=== PATIENT | female | born 1930 | race Caucasian/White ===

== ENCOUNTER 2019-02-05 01:05 | Emergency (ER) | payer MEDICARE, MEDICAID ==
--- NOTE | 2019-02-05 01:31 | ED ---
GI/ HPI - HPI Summary HPI Summary: This patient is an 88 year old female brought in by EMS presenting to [facility] with a chief complaint of possible GI bleed since 11 hours ago. At this time she was vomiting coffee ground vomitus. She reports nausea and 7/10 abdominal pain. She has a hx. of GERD, HTN. She was given 8mg IV zofran by EMS enroute. She takes Aleve daily. - History of Current Complaint Chief Complaint: EDGIBleed Time Seen by Provider: 02/05/19 01:24 Stated Complaint: ABD PAIN PER EMS Hx Obtained From: Patient Onset/Duration: Started Hours Ago Timing: Constant Pain Intensity: 7 - Allergy/Home Medications Allergies/Adverse Reactions: Allergies Allergy/AdvReac Type Severity Reaction Status Date / Time No Known Allergies Allergy Verified 02/05/19 03:27 Home Medications: Home Medications Naproxen Sodium [Aleve] 220 mg PO BEDTIME 02/05/19 [History Confirmed 02/05/19] PMH/Surg Hx/FS Hx/Imm Hx Cardiovascular History: Reports: Hx Hypertension Musculoskeletal History: Denies: Hx Rheumatoid Arthritis - Surgical History Surgery Procedure, Year, and Place: Appendectomy. Back Surgery Infectious Disease History: No Infectious Disease History: Denies: Traveled Outside the [place] in Last 30 Days - Family History Known Family History: Negative: Cardiac Disease - Social History Alcohol Use: None Substance Use Type: Reports: None Smoking Status (MU): Never Smoked Tobacco Review of Systems Negative: Fever Positive: Abdominal Pain, Vomiting, Nausea All Other Systems Reviewed And Are Negative: Yes Physical Exam - Summary Physical Exam Summary: VITAL SIGNS: Reviewed. GENERAL: Patient is a well-developed and nourished FEMALE who is lying comfortable in the stretcher. Patient is not in any acute respiratory distress. HEAD AND FACE: No signs of trauma. No ecchymosis, hematomas or skull depressions. No sinus tenderness. EYES: PERRLA, EOMI x 2, No injected conjunctiva, no nystagmus. EARS: Hearing grossly intact. Ear canals and tympanic membranes are within normal limits. MOUTH: Oropharynx within normal limits. NECK: Supple, trachea is midline, no adenopathy, no JVD, no carotid bruit, no c- spine tenderness, neck with full ROM. CHEST: Symmetric, no tenderness at palpation LUNGS: Clear to auscultation bilaterally. No wheezing or crackles. CVS: Regular rate and rhythm, S1 and S2 present, no murmurs or gallops appreciated. ABDOMEN: Soft, non-tender. No signs of distention. No rebound no guarding, and no masses palpated. Bowel sounds are normal. EXTREMITIES: FROM in all major joints, no edema, no cyanosis or clubbing. NEURO: Alert and oriented x 3. No acute neurological deficits. Speech is normal and follows commands. SKIN: Dry and warm Rectal: No hemorrhoids, brown stool. Will send for occult screen. Triage Information Reviewed: Yes Vital Signs On Initial Exam: Initial Vitals Temp Pulse Resp BP Pulse Ox 99.2 F 86 18 154/86 96 02/05/19 01:15 02/05/19 01:15 02/05/19 01:15 02/05/19 01:15 02/05/19 01:15 Vital Signs Reviewed: Yes Diagnostics - Vital Signs Vital Signs Temp Pulse Resp BP Pulse Ox 02/05/19 01:15 99.2 F 86 18 154/86 96 - Laboratory Result Diagrams: 02/05/19 01:59 02/05/19 01:59 Lab Statement: Any lab studies that have been ordered have been reviewed, and results considered in the medical decision making process. - CT Abd/Pel CT Interpretation Completed By: Radiologist Summary of CT Findings: Large hiatal hernia. In addition, intrathoracic location of a portion of the distal body of the stomach. ED Provider has reviewed this report. GIGU Course/Dx - Course Course Of Treatment: This patient is an 88 year old female brought in by EMS presenting to [facility] with a chief complaint of possible GI bleed since [address] Abd/Pel was remarkable for hiatial hernia and gastritis. The patient tolerated PO well. A plan for discharge was discussed with the patient and she was agreeable with this plan. - Diagnoses Provider Diagnoses: Hiatal hernia, Gastritis Discharge - Sign-Out/Discharge Documenting (check all that apply): Patient Departure - Discharge Patient Received Moderate/Deep Sedation with Procedure: No - Discharge Plan Condition: Stable Disposition: HOME Prescriptions: Ondansetron HCl [Zofran] 8 mg PO Q6H PRN #20 tablet PRN Reason: Nausea/Vomiting Pantoprazole TAB * [Protonix TAB*] 40 mg PO DAILY #30 tab Patient Education Materials: Hiatal Hernia (ED), Gastritis (ED) Referrals: Savita Patel, [facility] [Primary Care Provider] - Additional Instructions: Return to ED with any new or worsening symptoms. - Attestation Statements Document Initiated by Scribe: Yes Documenting Scribe: Juan Yo Provider For Whom Scribe is Documenting (Include Credential): Anuel Martinez MD Scribe Attestation: IJuan, scribed for Anuel Martinez MD on 02/05/19 at 0521. Status of Scribe Document: Ready
[2019-02-05] MEDS ORDERED: Metoclopramide IV* 5 MG/ML 2 ML VIAL IV SLOW PU ONE (01:34)
[2019-02-05] MEDS ORDERED: Morphine 4 MG/ML VIAL (1 ml) 4 MG/ML VIAL IV ONE (01:34)
[2019-02-05] MEDS ORDERED: Pantoprazole IV* 40 MG IV ONE (01:34)
[2019-02-05 02:08] LABS: ABS Basophils 0.1 10^3/ul (0-0.2); ABS Lymphocytes 1.3 10^3/ul (1.0-4.8); ABS Monocytes 0.6 10^3/ul (0-0.8); ABS Neutrophils 9.6 10^3/ul (1.5-7.7); Eosinophil % 0.2 %; Hematocrit 41 % (35-47); Hemoglobin 13.4 g/dL (12.0-16.0); Lymphocyte % 11.3 %; Mean Corpuscular HGB Conc 33 g/dL (31-36); Mean Corpuscular Hemoglobin 28 pg (27-31); Mean Corpuscular Volume 84 fL (80-97); Mean Platelet Volume 7.7 fL (7.4-10.4); Platelet Count 200 10^3/uL (150-450); Red Blood Count 4.86 10^6 /uL (3.70-4.87); Red Cell Distribution Width 15 % (10-15); White Blood Count 11.5 10^3/uL (3.5-10.8)
[2019-02-05 02:27] LABS: Albumin 4.3 g/dL (3.2-5.2); Albumin/Globulin Ratio 1.3 (1-3); C Reactive Protein 3.19 mg/L (<8.01); Calcium 10.8 mg/dL (8.6-10.3); EGFR African American 58.6 (>60); EGFR Non-African American 48.4 (>60); Globulin 3.2 g/dL (2-4); Potassium 3.6 mmol/L (3.5-5.0); Total Bilirubin 0.6 mg/dL (0.2-1.0); Total Protein 7.5 g/dL (6.4-8.9)
[2019-02-05 02:30] LABS: Activated Partial Thrombo Time 31.5 seconds (26.0-38.0); INR 0.98 (0.82-1.09)
[2019-02-05] MEDS ORDERED: Iodixanol* (CONTRAST) 320 MG/ML 100 ML SDV IV ONE (02:36)
[2019-02-05 05:23] VITALS: BP 146/75
[2019-02-05 06:29] LABS: Urine Appearance Turbid; Urine Bacteria Absent (Absent); Urine Bilirubin Negative (Negative); Urine Blood 1+ (Negative); Urine Color Yellow; Urine Glucose Negative (Negative); Urine Ketones Trace (Negative); Urine Nitrite Negative (Negative); Urine Protein Negative (Negative); Urine Red Blood Cell 1+(3-5/hpf) (Absent); Urine Specific Gravity 1.035 (1.010-1.030); Urine Squamous Epithelial Cell Present (Absent); Urine Urobilinogen Negative (Negative); Urine White Blood Cell Absent (Absent)
== END 2019-02-05 05:33 | disposition home or self-care (01) ==
LOC: ED 01:05
DX: K44.9 Diaphragmatic hernia without obstruction or gangrene (principal); K29.70 Gastritis, unspecified, without bleeding; K21.9 Gastro-esophageal reflux disease without esophagitis; I10 Essential (primary) hypertension; Z79.899 Other long term (current) drug therapy
CPT/HCPCS: 36415; 74177; 80053; 81003; 81015; 82150; 82272; 83690; 85025; 85610; 85730; 86140; 86850; 86900; 86901; 96374; 96375; 99284; J2270; J2765; Q9967

== ENCOUNTER 2019-07-29 21:47 | Inpatient (IN) | payer MEDICARE, MEDICAID ==
--- NOTE | 2019-07-29 23:12 | ED ---
Abdominal Pain/Female - HPI Summary HPI Summary: 88-year-old female with a significant past medical history of a hiatal hernia, hypertension presents to emergency department today complaining of 8 out of 10 diffuse lower abdominal pain which describes as achy. Patient states she had an episode lasting approximately 4 hours yesterday evening that she felt better when she woke up this date. She states that approximately 1700 this date her symptoms returned and were worse. Patient is currently denying bloody stool, vomiting, fever but does endorse associated nausea. Patient is in no acute distress. Surgical history and family history is noncontributory. Patient denies recent high-dose NSAID use but states "I have a few for headaches now and then". - History of Current Complaint Chief Complaint: EDAbdPain Stated Complaint: ABD PAIN, VOMTING Time Seen by Provider: 07/29/19 23:11 Hx Obtained From: Patient Onset/Duration: Gradual Onset Timing: Constant Severity Initially: Moderate Severity Currently: Moderate Pain Intensity: 10 Pain Scale Used: 0-10 Numeric Location: Diffuse Radiates: No Character: Other: - aching Aggravating Factor(s): Movement Allergies/Adverse Reactions: Allergies Allergy/AdvReac Type Severity Reaction Status Date / Time No Known Allergies Allergy Verified 02/05/19 03:27 PMH/Surg Hx/FS Hx/Imm Hx Cardiovascular History: Reports: Hx Hypertension History: Denies: Hx Renal Disease Musculoskeletal History: Denies: Hx Rheumatoid Arthritis - Surgical History Surgery Procedure, Year, and Place: Appendectomy. Back Surgery - Immunization History Date of Influenza Vaccine: 05/2019 Infectious Disease History: No Infectious Disease History: Reports: Traveled Outside the [place] in Last 30 Days - [place] - Family History Known Family History: Negative: Cardiac Disease - Social History Alcohol Use: None Substance Use Type: Reports: None Smoking Status (MU): Never Smoked Tobacco Review of Systems Constitutional: Negative Eyes: Negative ENT: Negative Cardiovascular: Negative Respiratory: Negative Positive: Abdominal Pain, Nausea Genitourinary: Negative Musculoskeletal: Negative Skin: Negative Neurological: Negative Psychological: Normal All Other Systems Reviewed And Are Negative: Yes Physical Exam - Summary Physical Exam Summary: Patient is in no acute distress. Inspection of the abdomen reveals no evidence of ecchymosis or masses. Auscultation reveals normoactive bowel sounds. Palpation of the abdomen reveals tenderness below her abdomen bilaterally. No peritoneal signs or guarding or rebound tenderness. Triage Information Reviewed: Yes Vital Signs On Initial Exam: Initial Vitals Temp Pulse Resp BP Pulse Ox 98.4 F 96 18 151/81 96 07/29/19 21:48 07/29/19 21:48 07/29/19 21:48 07/29/19 21:48 07/29/19 21:48 Vital Signs Reviewed: Yes Appearance: Positive: Well-Appearing, No Pain Distress, Well-Nourished Skin: Positive: Warm, Skin Color Reflects Adequate Perfusion Eyes: Positive: EOMI, AMISH ENT: Positive: Hearing grossly normal Respiratory/Lung Sounds: Positive: Clear to Auscultation, Breath Sounds Present Cardiovascular: Positive: RRR, S1, S2 Abdomen Description: Positive: Nontender, Soft Bowel Sounds: Positive: Present Musculoskeletal: Positive: Strength/ROM Intact Neurological: Positive: Sensory/Motor Intact, Alert, Oriented to Person Place, Time, Normal Gait, Facial Symmetry, Speech Normal Psychiatric: Positive: Normal, Affect/Mood Appropriate AVPU Assessment: Alert Procedures - Sedation Patient Received Moderate/Deep Sedation with Procedure: No Diagnostics - Vital Signs Vital Signs Temp Pulse Resp BP Pulse Ox 07/29/19 22:58 97.4 F 98 18 153/86 93 07/29/19 21:48 98.4 F 96 18 151/81 96 - Laboratory Result Diagrams: 07/29/19 23:34 07/29/19 23:34 Lab Statement: Any lab studies that have been ordered have been reviewed, and results considered in the medical decision making process. Abdominal Pain Fem Course/Dx - Course Course Of Treatment: Patient was evaluated in the emergency department today for abdominal pain. Patient Was examined and her vitals are stable. EKG reveals normal sinus rhythm at a rate of 68 bpm. No evidence of STEMI. Normal axis. There is evidence of atrial premature complexes. Patient's labs returned showing no evidence of leukocytosis with white blood for count of 8.7. Patient was given IV morphine and Zofran, Reglan for nausea. There are no other significant electrolyte abnormalities. CT of the abdomen and pelvis with contrast was ordered which revealed: Stable appearance of moderate to large hiatal hernia with portions of the proximal and distal stomach in the hernia sac but most of the body of the stomach within the abdomen. Unchanged appearance of twisting of the stomach and somewhat increased fluid-filled gastric distention since the prior exam consistent with gastric volvulus. No evidence of diverticulitis. General surgery, Dr. eKvin was consulted at 0301. He suggested the patient's volvulus did not require immediate surgical attention at this time and was interested in having gastroenterology consulted to investigate changes with previously diagnosed gastric volvulus. Gastric trial just Dr. Snyder consulted at 0341 2 suggested the patient be admitted for further evaluation. Hospitalist Dr. Silva consulted at 0424 for admission the patient for further evaluation of gastrointestinal pain. Dr. Silva agreed to admit and see the patient. - Diagnoses Differential Diagnosis: Positive: Appendicitis, Bowel Obstruction, Constipation , Diverticulitis, Peptic Ulcer Disease Provider Diagnoses: Abdominal pain, Gastric volvulus Discharge ED - Sign-Out/Discharge Documenting (check all that apply): Patient Departure - Discharge Plan Condition: Fair Disposition: ADMITTED TO [facility] Referrals: Savita Patel NP [Primary Care Provider] - - Billing Disposition and Condition Condition: FAIR Disposition: [facility]
[2019-07-29] MEDS ORDERED: Morphine 4 MG/ML VIAL (1 ml) 4 MG/ML VIAL IV ONE (23:18)
[2019-07-29] MEDS ORDERED: Ondansetron INJ* 2 MG/ML VIAL IV ONE (23:18)
[2019-07-29] MEDS ORDERED: Ondansetron INJ* 2 MG/ML VIAL ONE (23:47)
[2019-07-30 00:06] LABS: ABS Monocytes 0.5 10^3/ul (0-0.8); ABS Neutrophils 7.2 10^3/ul (1.5-7.7); Eosinophil % 0.4 %; Hematocrit 39 % (35-47); Lymphocyte % 10.9 %; Mean Corpuscular HGB Conc 33 g/dL (31-36); Mean Corpuscular Hemoglobin 28 pg (27-31); Mean Corpuscular Volume 84 fL (80-97); Mean Platelet Volume 8.6 fL (7.4-10.4); Platelet Count 217 10^3/uL (150-450); Red Blood Count 4.62 10^6 /uL (3.70-4.87); Red Cell Distribution Width 15 % (10-15); White Blood Count 8.7 10^3/uL (3.5-10.8)
[2019-07-30 00:24] LABS: Troponin I 0.01 ng/mL (<0.03)
[2019-07-30 00:25] LABS: Albumin 4.3 g/dL (3.2-5.2); Albumin/Globulin Ratio 1.3 (1-3); BUN/Creatinine Ratio 14.2 (8-20); C Reactive Protein 2.78 mg/L (<8.01); Calcium 10.8 mg/dL (8.6-10.3); EGFR African American 48.1 (>60); EGFR Non-African American 39.7 (>60); Globulin 3.2 g/dL (2-4); Magnesium 2.1 mg/dL (1.9-2.7); Potassium 3.7 mmol/L (3.5-5.0); Total Bilirubin 0.5 mg/dL (0.2-1.0); Total Protein 7.5 g/dL (6.4-8.9)
[2019-07-30] MEDS ORDERED: Morphine 4 MG/ML VIAL (1 ml) 4 MG/ML VIAL IV ONE ×2 (00:34→04:37)
[2019-07-30] MEDS ORDERED: Metoclopramide IV* 5 MG/ML 2 ML VIAL IV SLOW PU ONE (00:34)
[2019-07-30] MEDS ORDERED: Iodixanol* (CONTRAST) 320 MG/ML 100 ML SDV IV ONE (01:41)
[2019-07-30 03:03] LABS: Activated Partial Thrombo Time 29.6 seconds (26.0-38.0); INR 1.01 (0.82-1.09)
[2019-07-30] MEDS ORDERED: Ondansetron INJ* 2 MG/ML VIAL IV ONE (04:40)
[2019-07-30] MEDS ORDERED: NS 0.9% 1000 ML** 1,000 ML IV ONE (04:48)
--- NOTE | 2019-07-30 06:53 | ADMNOTE ---
Subjective Interval History: this is my HP 88-year-old female with a significant past medical history of a hiatal hernia and gastric volvulus came with severe lower achy abdominal pain. Pain started yesterday but resolved after a few hours. Pain came back about 8 hrs ago and just kept getting worse.Pain associated with N/V. Her vitals are stable. Her initial lab values are benign. CT of the abdomen and pelvis with contrast showed a known Stable appearance of moderate to large hiatal hernia with portions of the proximal and distal stomach in the hernia sac but most of the body of the stomach within the abdomen. Unchanged appearance of twisting of the stomach and somewhat increased fluid-filled gastric distention since the prior exam consistent with gastric volvulus. No evidence of diverticulitis. General surgery, Dr. Kevin was consulted and did not think pt needed immediate surgical treatment. GI was also consulted regarding known gastric volvulus and will see pt this morning. Family History: Unchanged from Admission Social History: Unchanged from Admission Past Medical History: Unchanged from Admission Review of Systems - Measurements Intake and Output: Intake and Output Last 24 Hours 07/27/19 07/28/19 07/29/19 07/30/19 06:59 06:59 06:59 06:59 Intake Total 1000 Output Total 0 Balance 1000 Weight 130 lb Intake: IV Fluids 1000 Oral 0 Output: Urine 0 Other: # Bowel Movements 0 - Review of Systems Constitutional Symptoms: Negative: Weight Gain, Weight Loss, Weakness, Fatigue, Fever, Night Sweats, Unexplained Falls, Other Dermatology: Negative: Normal, Rash, Skin Lesions, Cancer, Skin Lumps, Other HEENT: Negative: Normal, Change in Hearing, Vertigo, Dental Problems, Tinnitus, Sinus Problem, Other Eyes: Negative: Normal, Change in Vision, Double Vision, Eye Pain, Glaucoma, Cataract, Contacts or Glasses, Other Thyroid: Negative: Normal, Goiter, Thyroid Nodule, Cold Intolerance, Heat Intolerance , Sweatiness, Tremor, Frequent Defecation, Constipation, Palpitations, Primary Hypothyroidism, Primary Hyperthyroidism, Weight Loss, Weight Gain, Change in Skin/Hair, Change in Menstruation, Radiation Exposure, Other Pulmonary: Negative: Normal, Cough, Sputum, Hemoptysis, Wheezing, Respiratory Distress, Shortness of Breath, COPD, Asthma, Exercise Intolerance, Home Oxygen, Other Cardiology: Negative: Normal, Chest Pain, Shortness of Breath, Palpitations, Swelling of Ankles, Peripheral Vascular Dis, Edema, Faintness, Syncope, Claudication, Proximal NocturnalDyspnea, Orthopnoea, Other Gastroenterology: Positive: Abdominal Pain, Nausea, Vomiting Negative: Normal, Anorexia, Indigestion, Difficulty Swallowing, Heartburn, Constipation, Diarrhea, Blood in Stools, Change in Bowel Habits, Haematemesis, Melena, Other Genital - Urinary: Negative: Normal, Dysuria, Hematuria, Polyuria, Nocturia, Other Musculoskeletal: Negative: Joint Pain, Joint Stiffness, Arthritis, Osteoporosis, Low Back Pain , Sciatica, Joint Deformities, Kyphoscoliosis, Other Endocrinology: Negative: Normal, Thyroid Problems, Adrenal Problems, Gonadal Problems, Family Hx Endocrine Disorders, Obesity, Diabetes Mellitus, Hyperglycemia, Hx Hypoglycemia, Diabetic Foot Ulcers, Calluses, Hirsutism, Menstrual Abnormalities , Polydipsia, Polyuria, Gonadal Problems, Gynecomastia, Pituitary disease, Other Hematologic/Lymphatic: Negative: Anemia, Easy Bruising, Hx Leukemia, Hx Lymphoma, Use of Anticoagulant, Use of Antiplatelet Drugs, Other Neurology: Negative: Normal, Headache, Migraines, Change in Vision, Diplopia, Dizziness , Change in Balancing, Change in Coordination, Change in Memory, Change in Speech, Change in Sphincter Function, Change in Walking, Numbness\Paresthesiae, Unexplained Weakness, Hx of Stroke\TIA, Hx of Seizures, Other Psychiatry: Negative: Normal, Depression, Anxiety, Depressed Mood, Anhedonia, Sexual Dysfunction, Weight Change, Guilt Feelings, Tearfulness, Unusual Fatigue, Unusual Anxiety, Suicidal Ideation, Hypomania, Eating Disorders, Other Allergic/Immunologic: Negative: Hx Anaphylaxis, Hx Angioedema, Hx Environmental, Hx Seasonal, Asthma, Hx HIV, Immunocompromise, Swollen Glands LymphNodes, Other Objective Active Medications: Heparin Sodium (Porcine) (Heparin Vial(*)) 5,000 units SUBCUT Q8HR [facility] Sodium Chloride (Ns 0.9% 1000 Ml) 1,000 mls @ 75 mls/hr IV PER RATE SAMANTHA Morphine Sulfate (Morphine Inj (Syringe))*) 2 mg IV Q4H PRN PRN Reason: PAIN - MILD Ondansetron HCl (Zofran Inj*) 4 mg IV Q4H PRN PRN Reason: NAUSEA/VOMITING Ambulatory Orders Lisinopril [Lisinopril 40 MG-] 40 mg PO DAILY 09/05/13 Naproxen Sodium [Aleve] 220 mg PO BEDTIME 02/05/19 Ondansetron HCl [Zofran] 8 mg PO Q6H PRN #20 tablet 02/05/19 Pantoprazole TAB * [Protonix TAB*] 40 mg PO DAILY #30 tab 02/05/19 Vital Signs - 8 hr 07/29/19 07/29/19 07/29/19 22:55 22:58 23:00 Temperature 97.4 F Pulse Rate 90 84 96 Respiratory 24 30 Rate Blood Pressure 153/86 153/86 (mmHg) O2 Sat by Pulse 93 93 92 Oximetry 07/29/19 07/29/19 07/29/19 23:01 23:25 23:50 Temperature Pulse Rate 95 109 Respiratory 28 27 24 Rate Blood Pressure 153/86 142/84 (mmHg) O2 Sat by Pulse 94 96 Oximetry 07/29/19 07/29/19 07/29/19 23:52 23:54 23:55 Temperature 98.7 F Pulse Rate 82 94 83 Respiratory 18 18 21 Rate Blood Pressure 96/65 96/65 96/49 (mmHg) O2 Sat by Pulse 98 96 98 Oximetry 07/30/19 07/30/19 07/30/19 00:00 00:25 00:55 Temperature Pulse Rate 89 90 72 Respiratory 22 16 17 Rate Blood Pressure 110/76 115/53 (mmHg) O2 Sat by Pulse 97 99 97 Oximetry 07/30/19 07/30/19 07/30/19 01:00 01:25 01:55 Temperature Pulse Rate 59 71 70 Respiratory 19 21 28 Rate Blood Pressure 111/56 126/84 (mmHg) O2 Sat by Pulse 97 91 95 Oximetry 07/30/19 07/30/19 07/30/19 02:00 02:04 02:25 Temperature 97.9 F Pulse Rate 80 77 Respiratory 20 17 Rate Blood Pressure 120/63 (mmHg) O2 Sat by Pulse 97 96 Oximetry 07/30/19 07/30/19 07/30/19 02:55 03:00 03:25 Temperature Pulse Rate 78 71 77 Respiratory 30 26 13 Rate Blood Pressure 100/55 (mmHg) O2 Sat by Pulse 98 97 92 Oximetry 07/30/19 07/30/19 07/30/19 03:56 04:00 04:25 Temperature Pulse Rate 99 77 90 Respiratory 16 17 17 Rate Blood Pressure 112/76 (mmHg) O2 Sat by Pulse 91 92 95 Oximetry 07/30/19 07/30/19 07/30/19 04:46 04:52 04:55 Temperature Pulse Rate 82 74 Respiratory 18 14 22 Rate Blood Pressure 111/63 121/63 (mmHg) O2 Sat by Pulse 96 98 Oximetry 07/30/19 07/30/19 07/30/19 05:00 05:25 05:55 Temperature 97.9 F Pulse Rate 80 69 66 Respiratory 21 15 16 Rate Blood Pressure 133/75 121/72 (mmHg) O2 Sat by Pulse 99 98 99 Oximetry 07/30/19 07/30/19 06:14 06:30 Temperature 98 F 98.1 F Pulse Rate 70 78 Respiratory 16 18 Rate Blood Pressure 121/72 128/53 (mmHg) O2 Sat by Pulse 99 92 Oximetry Oxygen Devices in Use Now: Nasal Cannula Appearance: pt was asleep when i examined her Eyes: No Scleral Icterus, PERRLA Ears/Nose/Mouth/Throat: Mucous Membranes Moist Neck: NL Appearance and Movements; NL JVP, Trachea Midline Respiratory: Symmetrical Chest Expansion and Respiratory Effort, Clear to Auscultation Cardiovascular: NL Sounds; No Murmurs; No JVD Abdominal: - - NL sound, mild tenderness in suprapubic region, no distention Skin: No Rash or Ulcers, No Nodules or Sclerosis Neurological: Alert and Oriented x 3 Result Diagrams: 07/29/19 23:34 07/29/19 23:34 Assess/Plan/Problems-Billing Assessment: - Patient Problems (1) Continuous severe abdominal pain Current Visit: Yes Status: Acute Code(s): R10.9 - UNSPECIFIED ABDOMINAL PAIN SNOMED Code(s): 48363583 Comment: pt has known hx of hiatal hernia and gastric volvulus came in with severe lower abdominal pain with N/V CT abdomen showed somewhat stable hernia and volvulus. Questioning if CT findings have anything to do with presentation especially since her pain is in the lower quadrant. She has hx of diverticulosis that look stable as well, no inflammation. She had a BM yesterday. UA is pending will keep pt NPO. surgery and GI to see pt this am (2) Essential (primary) hypertension Current Visit: Yes Status: Acute Code(s): I10 - ESSENTIAL (PRIMARY) HYPERTENSION SNOMED Code(s): 95442969 Comment: hold KARINA due to slight bump in creatinine (3) DVT prophylaxis Current Visit: Yes Status: Acute Code(s): Z29.9 - ENCOUNTER FOR PROPHYLACTIC MEASURES, UNSPECIFIED SNOMED Code(s): 594433764 Comment: heparin scc (4) Full code status Current Visit: Yes Status: Acute Code(s): Z78.9 - OTHER SPECIFIED HEALTH STATUS SNOMED Code(s): 865021012 (5) MACK (acute kidney injury) Current Visit: Yes Status: Acute Code(s): N17.9 - ACUTE KIDNEY FAILURE, UNSPECIFIED SNOMED Code(s): 99612059 Comment: has CKD with slight elevation in cr above baseline IVF
[2019-07-30] MEDS: Pantoprazole TAB * 40 MG TAB PO SCH (09:30)
[2019-07-30] MEDS: Heparin VIAL(*) 5000 UNITS/ML VIAL (FIVE THOUSAND) SUBCUT SCH ×3 (09:30→20:08)
[2019-07-30] MEDS: Morphine INJ* 2 MG/ML 1 ML SYRINGE (TWO MG - NEW SYRINGE VERSION) IV PRN ×2 (13:27→20:08)
[2019-07-30] MEDS: Ondansetron INJ* 2 MG/ML VIAL IV PRN ×2 (13:28→20:08)
--- NOTE | 2019-07-30 15:10 | CONS ---
GASTROENTEROLOGY CONSULT: DATE: 07/30/19 CONSULTING PHYSICIANS: Dr. Nicolasa Madrid, Dr. Boris Bauer. REASON FOR CONSULTATION: Abdominal pain and vomiting. HISTORY: This 88-year-old woman, with a known history of a large hiatal hernia shown to be volvulized from an ER CT scan 02/05/19, had actually been feeling quite well for several months. morning, she was apparently feeling well. Late in the day , she began feeling some abdominal pressure. Thursday, a sense of unwellness continued and then Thursday evening she vomited. This was after she had tried some Pepto-Bismol and also a dose of Zofran. She called her family last night around 9 p.m. that she was much worse and came to the emergency room. Upon arrival there, she was perceived as complaining of lower abdominal distress. Some vomiting was observed of small volumes. Her vitals were steady and she was afebrile and white count normal. CT scan showed as before gastric volvulus with pylorus up in the chest. There was some additional distention of the stomach. She was given some pain medication and felt better. The ER evaluation also showed hemoglobin 13, hematocrit 39, platelet count 217, and calcium at 10.8. She was not overtly dehydrated, though her creatinine was 1.27, BUN 18, both slightly high for her. PAST MEDICAL HISTORY: 1. Appendectomy. 2. Large hiatal hernia - she had upper endoscopy by Dr. Cortés in 2013 when she had had about 3 months of burping and peptic compatible distress that was relieved with pantoprazole. EGD showed just a large hiatal hernia. She has not been back. She has stayed on the pantoprazole, although her compliance is variable. Remarkably, she was on a [place] cruise couple of months ago and had no trouble there. 3. Constipation and diarrhea - characteristically variable bowel habit. MEDICATIONS: At home: 1. Lisinopril 40. 2. Pantoprazole 40 q.a.m. (compliance variable per her [employer]OO[employer] granddaughter). 3. Naproxen 220 h.s. SOCIAL HISTORY: She lives alone in [place] and a daughter, Indira Gallardo, living nearby. Her granddaughter, Karen Patel, is a nurse practitioner in [place]. REVIEW OF SYSTEMS: She has no history of cardiopulmonary disease. She has never met a commercial energy rater. She is a lifetime nonsmoker. There is no history of hepatitis, jaundice, weight loss, renal disease, or colonoscopy. No history of rash. Her weight has been steady. She has had no bowel movement in 36 hours and denies any passage of flatus. EXAM: She is an elderly woman who nonetheless is vigorous and alert. She is a little bit hard of hearing. She is afebrile, pulse 83 and regular, blood pressure 135/62, weight stated at 135. HEENT exam shows no icterus. She has no adenopathy. Her lungs are clear and heart sounds are regular. Breast and pelvic exams are deferred. The abdomen is flat, symmetric, and bowel sounds are absent. Her abdomen is generally soft and nondistended. Extremities show no edema. LABS: CBC: Hemoglobin 13, hematocrit 39, MCV 84, platelets 217, white count 8.7 consistent with her baseline, although the single elevated value of 11.5 was with the ER visit 6 months ago. Chemistries did show calcium 10.8 six months ago. Iron panel in September 2016 showed 21% saturation, ferritin of 19. She had taken oral iron for a few months after the endoscopy 5 or 6 years ago. CRP was 2.78. CT REVIEW: Mild increase in gastric distention compared with the CT 6 months ago. The anatomic location of the EG junction and pylorus above the diaphragm is the same. The rest of the abdominal cavity shows no stranding, fluid collection, or sign of focal abnormality. There is no sign of diverticulitis per se. 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 She may decompress herself via vomiting. An NG tube is certainly an option and increasingly appearing to be useful. The calcium is up mildly but 10.8 is not likely enough to explain the whole picture. Beyond that, conventionally, surgery would be used and her good health is hopeful in that regard. There is some stomach below the level of the costal margin and it is possible a gastrostomy could be tried. Surgery consult is pending. [id number]/[facility] #: [id number] KARISSA
[2019-07-30] MEDS: PROCHLORPERAZINE INJ 5 MG/ML 2 ML VIAL IV PRN (16:39)
--- NOTE | 2019-07-30 16:41 | PN ---
Progress Note - Progress Note Date of Service: 07/30/19 Note: Pt was admitted earlier for a gastric volvulus. She has dry heaved/vomited a small amount 3x today. She is mostly just nauseous. She has no abdominal pain. Dr. Snyder saw the patient today. Dr. Kevin to see the patient tomorrow. Will add compazine 10mg q6hr prn nausea. May need NG decompression if she has frequent vomiting.
[2019-07-30] MEDS: NS 0.9% 1000 ML** 1,000 ML IV SCH (20:08)
[2019-07-31] MEDS: PROCHLORPERAZINE INJ 5 MG/ML 2 ML VIAL IV PRN (03:25)
[2019-07-31] MEDS: Heparin VIAL(*) 5000 UNITS/ML VIAL (FIVE THOUSAND) SUBCUT SCH ×3 (04:06→20:41)
[2019-07-31 07:23] LABS: ABS Lymphocytes 0.6 10^3/ul (1.0-4.8); ABS Monocytes 1.1 10^3/ul (0-0.8); Hematocrit 36 % (35-47); Lymphocyte % 5.1 %; Mean Corpuscular HGB Conc 33 g/dL (31-36); Mean Corpuscular Hemoglobin 28 pg (27-31); Mean Corpuscular Volume 85 fL (80-97); Platelet Count 184 10^3/uL (150-450); Red Blood Count 4.23 10^6 /uL (3.70-4.87); Red Cell Distribution Width 15 % (10-15); White Blood Count 11.7 10^3/uL (3.5-10.8)
[2019-07-31] MEDS: Pantoprazole TAB * 40 MG TAB PO SCH (07:35)
[2019-07-31] MEDS: Ondansetron INJ* 2 MG/ML VIAL IV PRN (07:35)
[2019-07-31] MEDS: NS 0.9% 1000 ML** 1,000 ML IV SCH (07:38)
[2019-07-31 07:41] LABS: BUN/Creatinine Ratio 29.6 (8-20); EGFR African American 57.9 (>60); EGFR Non-African American 47.9 (>60); Potassium 3.8 mmol/L (3.5-5.0)
--- NOTE | 2019-07-31 09:09 | PN ---
Subjective Date of Service: 07/31/19 Interval History: Pt continues to have intermittent vomiting. Her vomit is brown liquid, there has been a very few small flakes of dark material intermittently. She vomited up a protonix pill this AM. She denies any abdominal pain. Objective Active Medications: Heparin Sodium (Porcine) (Heparin Vial(*)) 5,000 units SUBCUT Q8HR [facility] Last Admin: 07/31/19 04:06 Dose: 5,000 units Sodium Chloride (Ns 0.9% 1000 Ml) 1,000 mls @ 75 mls/hr IV PER RATE [facility] Last Admin: 07/31/19 07:38 Dose: 75 mls/hr Morphine Sulfate (Morphine Inj (Syringe))*) 2 mg IV Q4H PRN PRN Reason: PAIN - MILD Last Admin: 07/30/19 20:08 Dose: 2 mg Ondansetron HCl (Zofran Inj*) 4 mg IV Q4H PRN PRN Reason: NAUSEA/VOMITING Last Admin: 07/31/19 07:35 Dose: 4 mg Pantoprazole Sodium (Protonix Tab*) 40 mg PO DAILY [facility] Last Admin: 07/31/19 07:35 Dose: 40 mg Prochlorperazine Edisylate (Compazine Inj*) 10 mg IV Q6H PRN PRN Reason: NAUSEA/VOMITING Last Admin: 07/31/19 03:25 Dose: 10 mg Vital Signs - 8 hr 07/31/19 07/31/19 07/31/19 03:25 07:15 07:44 Temperature 98.2 F 97.8 F Pulse Rate 94 88 Respiratory 20 18 18 Rate Blood Pressure 149/89 141/82 (mmHg) O2 Sat by Pulse 92 93 Oximetry Oxygen Devices in Use Now: None Appearance: Elderly female sitting up in bed, appearing wiped out, but in NAD Eyes: No Scleral Icterus Ears/Nose/Mouth/Throat: Mucous Membranes Moist Respiratory: Symmetrical Chest Expansion and Respiratory Effort, Clear to Auscultation Cardiovascular: NL Sounds; No Murmurs; No JVD, RRR, No Edema Abdominal: - - BS+ soft, ND Extremities: No Clubbing, Cyanosis Skin: No Rash or Ulcers Neurological: Alert and Oriented x 3 Result Diagrams: 07/31/19 06:26 07/31/19 06:26 Assess/Plan/Problems-Billing Ms Nguyễn is an 88 yo F who has a h/o HTN and GERD as well as a paraesophageal hernia who presented to the ER with c/o vomiting and 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 - Patient Problems (1) Gastric volvulus Current Visit: Yes Status: Acute Code(s): K31.89 - OTHER DISEASES OF STOMACH AND DUODENUM SNOMED Code(s): 80937094 Comment: Pt has been seen by GI and general surgery. Dr. Kevin will be back to speak to the patient's family later today to discuss an operative repair of her paraesophageal hernia and gastric volvulus. NG tube to be placed today. She continues to vomit intermittently. There was a question of coffee ground emesis last night. What I have seen so far has not appeared to be coffee grounds. In terms of cardiac risk the patient states that at baseline she is completely independent. She manages her own home including the cleaning. She has chickens that she tends to. She can walk up a flight of stairs without chest pain but she does get SOB. She states she also gets SOB walking just short distances. She will do the vaccuming but then need to sit and rest before moving on to the next task. She never has chest pain with these activities. Her RCRI is 1 giving her a 6% 30 day risk of , NC or cardiac arrest. The NSQIP surgical risk calculator stratifies the patient to average risk for any or serious complication and above risk for readmission and discharge to nursing facility. I would like to obtain a transthoracic echo to help stratify further. This has been ordered. She would be at least moderate risk for this extensive surgery. (2) Essential (primary) hypertension Current Visit: Yes Status: Acute Code(s): I10 - ESSENTIAL (PRIMARY) HYPERTENSION SNOMED Code(s): 31576735 Comment: BP is mildly elevated with holding KARINA. At this time continue to hold oral medication, if her BP climbs, can use prn IV hydralazine. (3) DVT prophylaxis Current Visit: Yes Status: Acute Code(s): Z29.9 - ENCOUNTER FOR PROPHYLACTIC MEASURES, UNSPECIFIED SNOMED Code(s): 294344765 Comment: SQ heparin (4) Full code status Current Visit: Yes Status: Acute Code(s): Z78.9 - OTHER SPECIFIED HEALTH STATUS SNOMED Code(s): 833576967
[2019-07-31] MEDS: D5W 1/2 NS KCl 20 Meq 1000 ML* 1,000 ML IV SCH ×2 (09:57→23:27)
[2019-07-31] MEDS: Pantoprazole IV* 40 MG IV SCH (10:04)
--- NOTE | 2019-07-31 12:36 | CONSULT ---
Consult Consult: See dictate note. She less nausea after NGT placed. Had 1300ml output so far. Has coffee ground appearance. Spoke with Dr. Madrid who feels she is moderate risk for surgery. Echo is pending. I met with her son and daughters (Felisa and Gina) as well as granddaughter ( Karen who is MANAGER STAR). We discussed surgical management options. Given her overall status, it is felt that laparoscopic repair of the PEH would be the best option and that gastrostomy tube would be less preferred. We discussed the nature of the procedure, indications, risks, benefits, alternatives and option of no treatment. The risks were explained including, not limited to: bleeding, infection, pain, scarring, blood clots, pneumonia, NE, stroke, visceral injury requiring other procedures, hernia recurrence as well as the risk of GETA. All questions have been answered. All are agreed to proceed with surgery. OR planned for Thursday.
--- NOTE | 2019-07-31 12:37 | CONS ---
CC: Juan Snyder MD; Savita Patel NP * CONSULTATION REPORT: DATE OF CONSULT: 07/31/19 REASON FOR CONSULT: Paraesophageal hernia. HISTORY OF PRESENT ILLNESS: This is an 88-year-old female who was admitted to [facility] after presenting to the emergency room on 07/29/19 with complaint of lower abdominal pain and nausea. She had known history of paraesophageal hernia and had previously presented to the emergency room in January 2019. Approximately 2 to 3 days ago, she reports that she started having pain and nausea with some emesis and reports that she was unable to take in much orally. In the emergency room, she was evaluated by CT scan, which showed a stable appearance of a rhxgpokb-[id number]-drvaz size hiatal hernia with gastric volvulus. The patient was admitted to the hospitalist service. She was seen by Dr. Snyder from Gastroenterology and a surgical consultation was requested as well. At present, the patient denies any pain. She reports she did have some emesis overnight. PAST MEDICAL HISTORY: Significant for hypertension, paraesophageal hernia. PAST SURGICAL HISTORY: Appendectomy. MEDICATIONS: 1. Lisinopril. 2. Pantoprazole. 3. Naprosyn. ALLERGIES: None known. SOCIAL HISTORY: Lives independently with family nearby. No tobacco use. PHYSICAL EXAM: 5 feet 2 inches, 135 pounds, temperature 97.8, pulse 88, respirations 18, O2 sat 93% on room air, blood pressure 141/82. Head is normocephalic, atraumatic. Sclerae anicteric. Mucous membranes appear moist. Abdomen: Nondistended, soft, nontender. No palpable masses, hernias. Extremities are warm. DIAGNOSTIC STUDIES/LAB DATA: WBC is 11.7, hemoglobin 12, hematocrit 36, platelets 184. Chemistries notable for normal electrolytes, BUN of 32 [address] creatinine of [address]. [address] scan images were reviewed from 07/29/19 and findings as reported. She has a large dilated stomach with large paraesophageal hernia with appearance of volvulus. IMPRESSION: A 88-year-old female without significant cardiopulmonary disease by history with a large paraesophageal hernia with concern for gastric volvulus. This appears unchanged over 5 months based on her CT imaging. She does not appear to require any emergent surgical intervention. PLAN/RECOMMENDATION: At present, given her continued issues with emesis and the size of her stomach on CT scan, I recommended placement of nasogastric tube. I briefly discussed the treatment options with the patient including surgical repair of the paraesophageal hernia. During our discussion regarding the patient's willingness to undergo surgery, she stated "whatever my daughters want." I subsequently did speak with her daughter Felisa by phone and we have arranged a meet for discussions later today. In the meantime, medical optimization for potential surgery will be discussed with Dr. Madrid. [id number]/[facility] #: [id number] KARISSA
[2019-08-01] MEDS: Heparin VIAL(*) 5000 UNITS/ML VIAL (FIVE THOUSAND) SUBCUT SCH ×3 (06:41→21:47)
--- NOTE | 2019-08-01 07:44 | PN ---
Subjective Date of Service: 08/01/19 Interval History: Patient reports that she is feeling well. denies vomiting overnight. Denies abd pain or diarrhea. Denies chest pain or shortness of breath. Denies fever or chills. Patient will go to surgery today for repair of gastric volvulus. Family History: Unchanged from Admission Social History: Unchanged from Admission Past Medical History: Unchanged from Admission Objective Active Medications: Heparin Sodium (Porcine) (Heparin Vial(*)) 5,000 units SUBCUT Q8HR [facility] Last Admin: 08/01/19 06:41 Dose: Not Given Potassium Chloride/Dextrose (D5w 1/2 Ns Kcl 20 Meq 1000 Ml*) 1,000 mls @ 75 mls /hr IV PER RATE [facility] Last Admin: 07/31/19 23:27 Dose: 75 mls/hr Morphine Sulfate (Morphine Inj (Syringe))*) 2 mg IV Q4H PRN PRN Reason: PAIN - MILD Last Admin: 07/30/19 20:08 Dose: 2 mg Ondansetron HCl (Zofran Inj*) 4 mg IV Q4H PRN PRN Reason: NAUSEA/VOMITING Last Admin: 07/31/19 07:35 Dose: 4 mg Pantoprazole Sodium (Protonix Iv*) 40 mg IV Q24H [facility] Last Admin: 07/31/19 10:04 Dose: 40 mg Prochlorperazine Edisylate (Compazine Inj*) 10 mg IV Q6H PRN PRN Reason: NAUSEA/VOMITING Last Admin: 07/31/19 03:25 Dose: 10 mg Vital Signs - 8 hr 08/01/19 08/01/19 03:28 07:35 Temperature 98.0 F Pulse Rate 78 Respiratory 18 18 Rate Blood Pressure 117/59 (mmHg) O2 Sat by Pulse 93 Oximetry Oxygen Devices in Use Now: None Result Diagrams: 07/31/19 06:26 07/31/19 06:26 Assess/Plan/Problems-Billing Ms Nguyễn is an 88 yo F who has a h/o HTN and GERD as well as a paraesophageal hernia who presented to the ER with c/o vomiting and 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 - Patient Problems (1) Gastric volvulus Current Visit: Yes Status: Acute Code(s): K31.89 - OTHER DISEASES OF STOMACH AND DUODENUM SNOMED Code(s): 63479607 Comment: Pt has been seen by GI and general surgery. - Dr. Kevin recommended operative repair of her paraesophageal hernia and gastric volvulus. - to OR this AM at 0930 - NG tube in place. - transthoracic echo- EF 55-60% no wall motion abnormality (2) Essential (primary) hypertension Current Visit: Yes Status: Acute Code(s): I10 - ESSENTIAL (PRIMARY) HYPERTENSION SNOMED Code(s): 23719011 Comment: stable -BP is mildly elevated with holding KARINA. At this time continue to hold oral medication, if her BP climbs, can use prn IV hydralazine. (3) DVT prophylaxis Current Visit: Yes Status: Acute Code(s): Z29.9 - ENCOUNTER FOR PROPHYLACTIC MEASURES, UNSPECIFIED SNOMED Code(s): 880584544 Comment: SQ heparin (4) Full code status Current Visit: Yes Status: Acute Code(s): Z78.9 - OTHER SPECIFIED HEALTH STATUS SNOMED Code(s): 286141575
[2019-08-01] MEDS ORDERED: Succinylcholine* 20 MG/ML 10 ML VIAL ONE (08:34)
[2019-08-01] MEDS ORDERED: Propofol* 10 MG/ML 20 ML BTL ONE (08:34)
[2019-08-01] MEDS ORDERED: Midazolam* 1 MG/ML 2 ML VIAL (2 MG) ONE (08:35)
[2019-08-01] MEDS ORDERED: Rocuronium* 10 MG/ML VIAL ONE ×2 (08:35→11:14)
[2019-08-01] MEDS ORDERED: fentaNYL* 50 MCG/ML 2 ML VIAL (100 MCG VIAL) ONE (08:35)
[2019-08-01] MEDS ORDERED: Lidocaine 2% PF * 5 ML VIAL ONE (08:36)
[2019-08-01] MEDS ORDERED: Bupivacaine 0.25% EPI 200,000* 30 ML SDV ONE (08:52)
[2019-08-01] MEDS ORDERED: ceFAZolin 2 GM PREMIX in ORs 2 GM/50 ML BAG ONE (09:15)
[2019-08-01] MEDS ORDERED: Phenylephrine 10 MG/ML VIAL* 1 ML VIAL ONE (09:16)
--- NOTE | 2019-08-01 09:38 | ECHO ---
*[facility]* [place] [address] Fax #: [phone] Transthoracic Echocardiogram Patient: Viry Nguyễn : 1930 Study Date: 08/01/2019 Age: 88 Gender: F HR: 90 bpm Height: 62 in /157.5 cm BSA: 1.62 m^2 Weight: 134.7 lb /61.2 kg BMI: 24.7 kg/m^2 *Director Of Special Events: * [facility] *Referring Physician: * Nicolasa Madrid *Reading Physician: * Lavon Soliman MD Indications: SOB. History: Gastric volvulus. Conclusions Summary: - Left ventricle: Systolic function is normal. The estimated ejection fraction is 55-60%. Wall motion is normal; there are no regional wall motion abnormalities. - Right ventricle: Systolic function is normal. - Left atrium: The atrium is severely dilated. - Mitral valve: There is trace to mild regurgitation. The valve area is 2.0 cm^2. The valve area by pressure half-time is 2.7 cm^2. - Aortic valve: The findings are consistent with mild stenosis. There is no significant regurgitation. The LVOT to aortic valve VTI ratio is 0.5. The valve area by the velocity-time integral method is 1.60 cm^2. The valve area by the peak velocity method is 1.60 cm^2. - Tricuspid valve: There is mild-moderate regurgitation. - Pulmonary arteries: Systolic pressure is mildly increased. The peak pressure during systole by Doppler is 42.0 mm Hg. - Study data: No prior study is available for comparison. Study data: Transthoracic echocardiogram. Procedure: Transthoracic echocardiography was performed. Image quality was fair. Complete 2D, spectral Doppler, and color flow Doppler. Location: Bedside. Patient status: Inpatient. Patient room number: 414 01. No prior study is available for comparison. Rhythm: Normal sinus rhythm with PAC's. Findings Left ventricle: The cavity size is mildly reduced. Wall thickness is mildly increased. Systolic function is normal. The estimated ejection fraction is 55-60%. Wall motion is normal; there are no regional wall motion abnormalities. Features are consistent with a pseudonormal left ventricular filling pattern, with concomitant abnormal relaxation and increased filling pressure (grade 2 diastolic dysfunction). Right ventricle: The cavity size is normal. Systolic function is normal. Left atrium: The atrium is severely dilated. Right atrium: The atrium is normal in size. Mitral valve: The Mitral valve annulus appears calcified. The leaflets are mildly calcified. There is no evidence of stenosis. There is trace to mild regurgitation. Aortic valve: The annulus is calcified. The valve is trileaflet. The leaflets are mildly thickened. The findings are consistent with mild stenosis. There is no significant regurgitation. Tricuspid valve: The leaflets are normal thickness. There is no evidence of stenosis. There is mild-moderate regurgitation. Pulmonic valve: The leaflets are normal thickness. There is no evidence of stenosis. There is trace to mild regurgitation. Aorta: The aortic root appears normal. Pericardium: There is no significant pericardial effusion. Pulmonary arteries: Systolic pressure is mildly increased. Systemic veins: Inferior vena cava: The vessel is dilated. There is (< 50%) respiratory change in the IVC dimension. Measurements Left ventricle Value Ref Aortic valve Value Ref ASHLEY, LAX (L) 3.1 cm 3.8 - 5.2 Christine diam, ED 1.9 cm ----- ESD, LAX 2.6 cm 2.2 - 3.5 Christine diam/bsa, ED 1.1 cm/m^2 ----- FS, LAX (L) 16 % 27 - 45 Peak v, S 2.2 m/sec ----- PW, ED, LAX 0.9 cm 0.6 - 0.9 VTI, S 47.0 cm ----- E', lat christine, TDI (L) 5.3 cm/sec >=10.0 Mean grad, S 12.0 mm Hg -- --- E/e', lat christine, 22 Peak grad, S 19.0 mm Hg ----- TDI LVOT/AV, VTI ratio 0.5 ----- E', med christine, TDI (L) 6.8 cm/sec >=7.0 RAJWINDER, VTI 1.60 cm^2 -- --- E/e', med christine, 17 RAJWINDER, Vmax 1.60 cm^2 ----- TDI E', avg, TDI 6.1 cm/sec Mitral valve Value Ref E/e', avg, TDI (H) 19 <=14 Peak E 1.17 m/sec -- --- Peak A 0.99 m/sec ----- LVOT Value Ref Decel time 140 ms ----- Diam, S 2.00 cm PHT 81 ms ----- Area 3.1 cm^2 Mean grad, D 2.0 mm Hg ----- Peak julián, S 1.1 m/sec Peak grad, D 7.0 mm Hg ----- VTI, S 24.0 cm Peak E/A ratio 1.2 ----- Peak grad, S 5 mm Hg MVA, PHT 2.7 cm^2 ----- Mean grad, S 2 mm Hg SV 74 ml Pulmonic valve Value Ref Peak v, S 0.75 m/sec ----- Ventricular septum Value Ref Peak grad, S 2.0 mm Hg ----- IVS, ED (H) 1.2 cm 0.6 - 0.9 Tricuspid valve Value Ref Right ventricle Value Ref TR peak v (H) 3 m/sec <=2.8 ASHLEY, LAX 2.4 cm Peak RV-RA grad, S 36 mm Hg ----- ASHLEY minor ax, A4C 3.0 cm 1.9 - 3.5 mid Aortic root Value Ref Pressure, S 44 mm Hg Root diam 2.9 cm <3.9 Root max diam, ED 2.9 cm <3.9 Left atrium Value Ref AP dim, ES 3.10 cm 2.70 - Pulmonary artery Value Ref 3.80 Pressure, S 42.0 mm Hg ----- ML dim, A4C 4.8 cm SI dim, A4C 6.4 cm Inferior vena cava Value Ref Vol/bsa, ES, A/L (H) 54 ml/m^2 16 - 34 Diam 2.5 cm ----- Right atrium Value Ref SI dim, ES 5.2 cm 3.4 - 5.3 ML dim, ES, A4C 3.9 cm 2.6 - 4.4 Estimated RAP 8 mm Hg Legend: (L) and (H) js values outside specified reference range. Prepared and electronically signed by Lavon Soliman MD 08/01/2019 09:37
[2019-08-01] MEDS ORDERED: Buffered Lidocaine 1% SYRIN* 1 ML/SYRINGE INTRADERM ONE (09:39)
[2019-08-01] MEDS ORDERED: Dexamethasone IV* 4 MG/ML 1 ML (4 MG) ONE (10:14)
[2019-08-01] MEDS ORDERED: Ketorolac INJ* 30 MG/ML 1 ML VIAL ONE (10:14)
[2019-08-01] MEDS ORDERED: Ondansetron INJ* 2 MG/ML VIAL ONE (10:14)
[2019-08-01] MEDS ORDERED: oxyCODONE TAB* 5 MG TAB PO PRN (10:40)
[2019-08-01] MEDS ORDERED: Naloxone* 0.4 MG/ML 1 ML VIAL IV PRN (10:40)
[2019-08-01] MEDS ORDERED: DiMENhydriNATE IV* 50 MG/ML VIAL IV PUSH PRN (10:40)
[2019-08-01] MEDS ORDERED: fentaNYL* 50 MCG/ML 2 ML VIAL (100 MCG VIAL) IV PRN (10:40)
[2019-08-01] MEDS ORDERED: Acetaminophen IV 1GM/100ML * 100 ML ONE (10:41)
[2019-08-01] MEDS: Pantoprazole IV* 40 MG IV SCH (11:13)
[2019-08-01] MEDS ORDERED: Sugammadex * 200 MG/2 ML VIAL IV PUSH ONE (12:31)
--- NOTE | 2019-08-01 13:14 | BRIEFOPN ---
Brief Operative/Procedure Note - Operation Details Pre-Op Diagnosis: paraesophageal hernia Post-Op Diagnosis: same Procedures: laparoscopic paraesophageal hernia repair Surgeon(s)/Proceduralists: Herberth. Assist: Mary Jo St Anesthesia: GETA. IVF: Crystalloid 1.6L Estimated Blood Loss: <25 cc Findings: as above Specimen(s)/Culture(s) Description: none Complications: none
[2019-08-01] MEDS ORDERED: Morphine INJ* 4 MG/ML 1 ML SYRINGE (NEW SYRINGE VERSION) IV PRN (14:32)
[2019-08-01] MEDS ORDERED: Acetaminophen TAB* 325 MG PO PRN (14:33)
[2019-08-01] MEDS: D5W 1/2 NS KCl 20 Meq 1000 ML* 1,000 ML IV SCH (14:33)
--- NOTE | 2019-08-02 00:04 | OP ---
CC: Savita Patel NP, [facility]; Juan Snyder MD * DATE OF OPERATION: 08/01/19 - ROOM #335 DATE OF : [birth year] SURGEON: Buck Kevin MD NARCOTICS AGENT: PILLO Kemp ANESTHESIOLOGIST: Glenda Lewis DO ANESTHESIA: General endotracheal. PRE-OP DIAGNOSIS: Paraesophageal hernia. POST-OP DIAGNOSIS: Paraesophageal hernia. OPERATIVE PROCEDURE: Laparoscopic repair of paraesophageal hernia with Delia fundoplication. ESTIMATED BLOOD LOSS: Less than 10 mL. IV FLUIDS: Crystalloid. SPECIMENS: None. DRAINS: None. COMPLICATIONS: None. COUNTS: Instrument, needle, and sponge counts were correct. DESCRIPTION OF PROCEDURE: The patient was brought to the operating room and placed on the table supine. Sequential compression devices were placed on both lower extremities. General anesthesia was administered and she was prepped and draped in the usual sterile fashion. She received appropriate intravenous antibiotics and a time-out was performed. Local anesthetic was infiltrated into the skin and soft tissue prior to making each incision. Pneumoperitoneum was achieved using the Veress needle through a transumbilical approach. A 5 mm optical trocar was placed in the left upper quadrant, another 5 mm trocar in the right upper quadrant and a 12 mm trocar placed through the umbilicus. 5 mm trocar was placed in the left upper quadrant further laterally and then a Jorge retractor was used percutaneously in a subxiphoid position and used to elevate the left lobe of the liver. There was a large paraesophageal hernia noted. The stomach appeared decompressed and there was no evidence of volvulus. The short gastric vessels were divided with the LigaSure and the left izzy of the diaphragm was identified. Atraumatic graspers were used to grasp the stomach and reduce it. The hernia sac was dissected out circumferentially across the anterior hiatus and then approach on the right side was undertaken, opening the pars flaccida, identifying the right diaphragmatic crura and then dissecting the peritoneum across this to meet up with the dissection from the left. The hernia sac was fully reduced and attachments were divided bluntly and with LigaSure. The pleura was inadvertently entered on the right side. There was only a small rent and this was closed with endoscopic clip placement. The dissection proceeded around the posterior of the hiatus dividing the sac entirely and then the gastroesophageal junction was encircled with a 0.25 inch James drain which was secured with a 2-0 Surgitie. This [place] was then used to aid an additional retraction while the continued circumferential mobilization of the esophagus was performed until about 4 cm of intraabdominal length was achieved. At this point, a 56-Malian bougie was placed and then a series of 4 crural sutures (0 Ethibond) were used with the addition of a Hemashield polyester patch used to reinforce the repair. Subsequently, a 360-degree Delia tight fundoplication was performed with 2 sutures of 0 Ethibond used to create a short and floppy wrap. The upper suture incorporated the portion of the wall of the esophagus. Lastly, additional suture of 0 Ethibond was used to secure the wrap on the right side of the diaphragm. At this point, hemostasis was assured. The James drain was removed. Jorge liver retractor was removed and ports were removed and the carbon dioxide was released. Umbilical wound was closed with 0 Vicryl in [id number]-dg-hdomn fashion to approximate the fascia. Skin incisions were closed with 4-0 Monocryl in subcuticular fashion and DermaFlex was applied. The patient tolerated this procedure well. She was awakened and extubated uneventfully and she was transferred to the recovery room in a stable condition. [id number]/[facility] #: [id number] KARISSA
[2019-08-02] MEDS: D5W 1/2 NS KCl 20 Meq 1000 ML* 1,000 ML IV SCH (03:35)
[2019-08-02 05:00] LABS: BUN/Creatinine Ratio 26.1 (8-20); Calcium 7.9 mg/dL (8.6-10.3); EGFR African American 69.7 (>60); EGFR Non-African American 57.6 (>60); Potassium 3.5 mmol/L (3.5-5.0)
[2019-08-02] MEDS: Heparin VIAL(*) 5000 UNITS/ML VIAL (FIVE THOUSAND) SUBCUT SCH (05:34)
--- NOTE | 2019-08-02 08:44 | PN ---
Progress Note - Progress Note Date of Service: 08/02/19 SOAP: Subjective: The patient reports to be doing well. She is tolerating water and chaim bong well without any nausea, vomiting or regurgitation. She has an appetite and states she would like to eat jello. She denies any abdominal pain, but complains of mild pain in the shoulders bilaterally. She has been walking and sitting in chair. Objective: [] Vital Signs Temp 98.7 F 08/02/19 07:39 Pulse 88 08/02/19 07:39 Resp 18 08/02/19 08:00 BP 152/74 08/02/19 07:39 Pulse Ox 96 08/02/19 07:39 Intake & Output 08/01/19 08/02/19 08/02/19 18:59 06:59 18:59 Intake Total 1260 1298 Output Total 450 0 Balance 1260 848 0 Intake: IV Fluids 1260 978 D5W 1/2 NS 20 meq KCL 978 LR 1260 Oral 0 320 Output: Urine 450 0 Other: # Bowel Movements 0 # Voids 0 Laboratory Results - last 24 hr 08/02/19 04:26 Sodium 138 Potassium 3.5 Chloride 105 Carbon Dioxide 27 Anion Gap 6 BUN 24 Creatinine 0.92 Est GFR ( Amer) 69.7 Est GFR (Non-Af Amer) 57.6 BUN/Creatinine Ratio 26.1 H Glucose 108 H Calcium 7.9 L Physical Exam: General: WDWN. Sitting in chair in NAD. CV: RRR. No m/r/g. Resp: CTAB. No w/r/r. Abdomen: Soft, nondistended. Incision c/d/i. Positive normoactive bowel sounds. Mild tenderness to the umbilical region. Assessment: This is a pleasant 88 yo female s/p paraesophageal hernia repair with Delia fundoplication POD #1. She is stable, tolerating diet well and pain is managed. She has not taken any pain medication but was given the option for Tylenol if pain worsens. Plan: Continue ambulating. Advance diet as tolerated. If full liquid diet is tolerated well, plan for discharge from surgical standpoint. <Bridget Camargo - Last Filed: 08/02/19 08:26> - Progress Note SOAP: Subjective: [Patient seen with PA student, Nora Singleton. I agree with her assessment and plan. Upon recheck, patient has tolerated a small amount of full liquids. If she continues to do well for her lunch tray, she could be discharged from the surgical standpoint. Discharge instructions reviewed and f/u appointment made for next week.] Objective: [] Assessment: [] Plan: [] <Ramana Fitzgerald - Last Filed: 08/02/19 11:34>
[2019-08-02] MEDS: Pantoprazole IV* 40 MG IV SCH (10:26)
[2019-08-02 11:14] VITALS: BP 131/64
[2019-08-02] MEDS ORDERED: HYDROcodone/ACETAMIN 5-325 MG* 1 TAB PO PRN (11:30)
--- NOTE | 2019-08-03 03:42 | DS ---
DISCHARGE SUMMARY: DATE OF ADMISSION: 07/30/19 DATE OF DISCHARGE: 08/02/19 PROVIDER: Jyotsna Zhang NP. PRIMARY CARE PROVIDER: Dr. Savita Patel. ATTENDING SURGEON: Dr. Kevin. ATTENDING PHYSICIAN WHILE IN THE HOSPITAL: Dr. Yeny Carreon * (dictated by Jyotsna Zhang NP). 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 STUDIES COMPLETED WHILE IN THE HOSPITAL: The patient had a CT of the abdomen and pelvis on 07/29/19. Radiologist's impression: Stable appearance of moderate to large hiatal hernia with a portion of the proximal and distal stomach in the hernia sac, but most of the body of the stomach within the abdomen, again unchanged in appearance of the twisting of the stomach and somewhat increased fluid filled gastric distention since prior exam consistent with gastric volvulus. Stable colonic diverticulosis without evidence of acute diverticulitis. She had an electrocardiogram, which showed sinus rhythm at a rate of 68. No ST or T wave changes with occasional PAC. She had a transthoracic echocardiogram on 07/31/19, which showed ejection fraction of 55% to 60%. Normal wall motion. No regional wall motion abnormalities. Grade 2 diastolic dysfunction. Aortic valve annulus is calcified. The valve is trileaflet and mildly thickened consistent with mild stenosis. Tricuspid valve normal thickness. No evidence of stenosis. Mitral valve annulus appears calcified. The leaflets are mildly calcified. There is no evidence of stenosis. There is trace to mild regurgitation. She had a chest x-ray on 07/31, radiologist's impression: Tip of the NG tube terminates in the left upper quadrant. Large hiatal hernia. Small pleural effusions. DISCHARGE MEDICATIONS: New home medications: 1. Pantoprazole 40 mg p.o. daily. 2. Zofran 8 mg every 6 hours as needed for pain. 3. Aleve 220 mg p.o. at bedtime. 4. Lisinopril 40 mg p.o. daily. 5. Hydrocodone/acetaminophen 1 tablet every 4 hours as needed for severe pain. 6. Tylenol 650 mg p.o. q.4 hours as needed. ALLERGIES: No known drug allergies. HISTORY OF PRESENT ILLNESS AND HOSPITAL COURSE: Ms. Nguyễn is an 88-year-old female with past medical history significant for hiatal hernia and gastric volvulus, who came to the emergency room with severe lower achy abdominal pain, started yesterday but resolved after a few hours. Pain came back 8 hours ago and kept getting worse, associated with nausea and vomiting, so she presented to the emergency room for further evaluation. The patient does carry a history of hypertension and paraesophageal hernia. During this hospitalization, the patient had a repair of her paraesophageal hernia and gastric volvulus by Dr. Kevin. The patient today on the day discharge is alert and oriented. She is tolerating a full liquid diet without any nausea or vomiting, and at this time, she is stable for discharge home. REVIEW OF SYSTEMS: The patient denies any fever or chills. Denies any chest pain or shortness of breath. Denies any nausea, vomiting, or diarrhea. The patient does report that she is passing gas. She denies any abdominal pain. Denies any chest pain or shortness of breath. No fever or chills overnight. PHYSICAL EXAMINATION: General: At this time, Ms. Nguyễn is alert and oriented, resting in the chair in her room. She is in no acute distress. Vital Signs: Blood pressure 131/64, heart rate 75, respirations 18, O2 saturation 96%, temperature was 98.8. HEENT: Head is atraumatic, normocephalic. Eyes: EOMs are intact. Sclerae anicteric and not pale. Oral mucosa is moist. Neck is supple. Lungs are clear auscultation bilaterally. No wheezes, rales, or rhonchi. Cardiac: S1, S2. Regular rate and rhythm. No murmurs, rubs, or gallops. Abdomen is soft, nontender. Bowel sounds are present x4. Extremities: She is able to to move all 4 extremities. There is no clubbing or cyanosis. Neurologic: She is awake, alert, oriented x3. Speech is clear. Thought process is intact. Skin is intact. At this time, Ms. Nguyễn is stable for discharge home. DISCHARGE PLAN: Ms. Nguyễn will be discharged home. Activity as tolerated. The patient should follow up with [facility] on 08/08/19 at 11 a.m. 1. Paraesophageal hernia/gastric volvulus repair. The patient should follow up with [facility] 08/08/19 at 11 a.m. She should continue on a full liquid/ soft diet with cream soup, puddings, custards, and soft cereals and advance slowly as tolerated with foods like bread and meat until swallowing normally. She needs to drink plenty of liquids and eat slowly. Avoid soda. She may shower and pat the incision dry. The patient should call the office if she experiences sharp pain, redness, swelling at the incision site, any wound drainage, yellow fluid, bright red blood or pus coming from the incision site or fever over 101 degrees. The patient is not to lift anything heavier than 10 to 20 pounds for 3 to 4 weeks. She is not to drive a car until her energy level is back to normal and after her first followup office visit. 2. Hypertension. The patient should continue on her lisinopril as previously prescribed. CONDITION ON DISCHARGE: Stable. DISPOSITION ON DISCHARGE: Home. Patient was instructed to return to the emergency room with any chest pain or shortness of breath. severe abdominalpain, uncontrolled nausea and vomiting or fever or chills. Patient and family verbalized understanding. TIME SPENT: Time spent on this discharge is 30 minutes, greater than half that time is spent at the bedside reviewing discharge instructions and plans and implementing my plan of care. I have discussed this with my attending Dr. Yeny Carreon; she is in agreement with my plan. JYOTSNA ZHANG NP [id number]/CPS #: [id number] KARISSA
== END 2019-08-02 14:40 | disposition home or self-care (01) | DRG 328 ==
LOC: ED 21:47 → MED 07-30 05:15 → SSU 08-01 14:18
PROVIDERS: ADMIT Student in an Organized Health Care Education/Training Program; ATTEND Internal Medicine
PROC: 0D9670Z Drainage of Stomach with Drainage Device, Via Natural or Artificial Opening (ICD-10-PCS; 2019-07-31)
PROC: 0DV44ZZ Restriction of Esophagogastric Junction, Percutaneous Endoscopic Approach (ICD-10-PCS; 2019-08-01)
PROC: 0BQT4ZZ Repair Diaphragm, Percutaneous Endoscopic Approach (ICD-10-PCS; principal; 2019-08-01 09:30)
DX: K44.9 Diaphragmatic hernia without obstruction or gangrene (principal); K31.89 Other diseases of stomach and duodenum; K57.90 Diverticulosis of intestine, part unspecified, without perforation or abscess without bleeding; I12.9 Hypertensive chronic kidney disease with stage 1 through stage 4 chronic kidney disease, or unspecified chronic kidney disease; N18.9 Chronic kidney disease, unspecified; I49.1 Atrial premature depolarization; K57.30 Diverticulosis of large intestine without perforation or abscess without bleeding; I08.0 Rheumatic disorders of both mitral and aortic valves; K21.9 Gastro-esophageal reflux disease without esophagitis; H91.90 Unspecified hearing loss, unspecified ear; Z87.19 Personal history of other diseases of the digestive system
CPT/HCPCS: 36415; 71045; 74177; 80048; 80053; 83605; 83690; 83735; 84484; 85025; 85610; 85730; 86140; 93005; 93306; 96374; 96375; 99284; A9270-GY; J0330; J0690; J0780; J1100; J1644; J1885; J2250; J2270; J2405; J2704; J2765; J3010; Q9967